=== PATIENT | male | born 1995 | race Caucasian/White ===

== ENCOUNTER 2018-03-21 16:10 | Emergency (ER) | payer OTHER ==
[~2018-03-21] VITALS: Ht 180.3 cm; Wt 69.9 kg
[2018-03-21 16:18] VITALS: BP 161/74
[2018-03-21] MEDS ORDERED: CEFTRIAXONE 250 MG IM ONE (16:30)
[2018-03-21] MEDS ORDERED: AZITHROMYCIN 500 MG TABLET PO ONE (16:30)
== END 2018-03-21 17:01 | disposition home or self-care (01) ==
LOC: ED 16:55
DX: Z00.00 Encounter for general adult medical examination without abnormal findings (principal)
CPT/HCPCS: 99281